=== PATIENT | male | born 1990 | race African-American/Black ===

== ENCOUNTER 2018-12-21 16:48 | Emergency (ER) | payer OTHER ==
[2018-12-21 17:06] VITALS: BP 131/95; PULSE 84; TEMP 97.8; BMI 20.4
[2018-12-21] MEDS ORDERED: IBUPROFEN 400 MG TABLET (FP) PO ONE ×2 (18:13→18:20)
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
== END 2018-12-21 18:24 | disposition home or self-care (01) ==
LOC: JERFT 16:48
DX: S39.012A Strain of muscle, fascia and tendon of lower back, initial encounter (principal); S46.812A Strain of other muscles, fascia and tendons at shoulder and upper arm level, left arm, initial encounter; V43.52XA Car driver injured in collision with other type car in traffic accident, initial encounter; Y92.414 Local residential or business street as the place of occurrence of the external cause; Y93.89 Activity, other specified; Y99.8 Other external cause status
CPT/HCPCS: 99281-25